=== PATIENT | female | born 1960 | race Caucasian/White ===

== ENCOUNTER 2021-04-21 05:32 | Outpatient (CLI) | payer BC ==
[~2021-04-21] VITALS: Ht 152.4 cm; Wt 63.6 kg
[2021-04-21] MEDS ORDERED: FLUT9.9S NSEACH (11:03)
[2021-04-21] MEDS ORDERED: L. A1CAP9 PO (11:03)
[2021-04-21] MEDS ORDERED: TRAM50TA3 PO (11:03)
[2021-04-21] MEDS ORDERED: [UNRECOGNIZED DRUG - REMARK] PO (11:03)
== END 2021-04-21 11:14 | disposition home or self-care (01) ==
LOC: PREOP 05:32
PROVIDERS: ATTEND Otolaryngology Otolaryngology/Facial Plastic Surgery
DX: Z01.818 Encounter for other preprocedural examination (principal)

== ENCOUNTER 2021-04-24 06:02 | Day surgery (SDC) | payer BC ==
[2021-04-24] VITALS (10 sets, daily range): BP systolic 122–159; BP diastolic 62–77
[~2021-04-24] VITALS: Ht 152.4 cm; Wt 63.6 kg
[~2021-04-24 06:02] MED LIST: FLUT9.9S NSEACH; L. A1CAP9 PO; TRAM50TA3 PO; [UNRECOGNIZED DRUG - REMARK] PO
[2021-04-24] MEDS: LACTATED RINGERS 1,000 ML IV PRN ×2 (06:24→08:21)
[2021-04-24] MEDS ORDERED: PHENYLEPHRINE 0.5% NASAL SPR (NEO-SYNEPHRINE) REG ONE (06:40)
[2021-04-24] MEDS ORDERED: LIDOCAINE/EPI 1%-1:100,000 (XYLOCAINE) 20ML ONE (06:40)
[2021-04-24] MEDS ORDERED: COCAINE HCL 4% 2 ML SYR ONE (06:40)
[2021-04-24] MEDS ORDERED: BSS 15 ML ONE (06:40)
[2021-04-24] MEDS ORDERED: MUPIROCIN 2% OINT 22 GM (BACTROBAN) TUBE ONE (06:41)
[2021-04-24] MEDS ORDERED: ONDANSETRON 4 MG/2 ML (SDV) Z0FRAN ONE (06:42)
[2021-04-24] MEDS ORDERED: MIDAZOLAM 2 MG/2 ML (VERSED) VIAL ONE (06:42)
[2021-04-24] MEDS ORDERED: ROCURONIUM 10 MG/ML 5 ML SYRINGE IV ONE (06:42)
[2021-04-24] MEDS ORDERED: proPOfol 200 MG/20 ML (DIPRIVAN) VIAL IV ONE (06:42)
[2021-04-24] MEDS ORDERED: fentaNYL INJ 100 MCG/2 ML AMP ONE (06:42)
[2021-04-24] MEDS ORDERED: SEVOFLURANE (ULTANE) 15 ML INHAL SOLN ONE (06:51)
--- NOTE | 2021-04-24 07:00 | Progress Note-Pre Operative ---
Pre-Operative Progress Note H&P Reviewed The H&P was reviewed, patient examined and no changes noted. Date Seen by Provider: Apr 24, 2021 Time Seen by Provider: 06:30 Date H&P Reviewed: Apr 24, 2021 Time H&P Reviewed: 06:30 Pre-Operative Diagnosis: Bilat Chronic Sinusities, Bialt REd of Inf Turbs KEVIN HOU MD Apr 24, 2021 07:00
[2021-04-24] MEDS ORDERED: GLYCOPYRROLATE 0.2 MG/ML (ROBINUL) 2 ML VIAL ONE (08:00)
[2021-04-24] MEDS ORDERED: NEOSTIGMINE 3 MG/3 ML VIAL ONE (08:00)
--- NOTE | 2021-04-24 08:14 | Progress Note-Post Operative ---
Post-Operative Progess Note Surgeon (s)/Disulfurizer Tender (s) Surgeon KEVIN HOU MD Disulfurizer Tender n/a Pre-Operative Diagnosis Bilat Chronic Sinusities, Bialt REd of Inf Turbs Post-Operative Diagnosis same Post-Op Procedure Note Date of Procedure: Apr 24, 2021 Name of Procedure Performed: Bilat ESS, Bialt Red of Inf Turbs Description & Findings Description and Findings: n/a Anesthesia Type get Estimated Blood Loss minimal Packing none. Specimen(s) collected/removed bialt chornic sinus disease KEVIN HOU MD Apr 24, 2021 08:14
[2021-04-24] MEDS ORDERED: HYDROcodone/APAP 5 MG/325 MG (LORTAB) TAB PO PRN (08:15)
[2021-04-24] MEDS ORDERED: D5 1/2 NS W/KCL 20 MEQ/L 1,000 ML IV SCH (08:15)
[2021-04-24] MEDS ORDERED: PROMETHAZINE INJ 25 MG/ML (PHENERGAN) AMP IVP PRN (08:15)
[2021-04-24] MEDS ORDERED: predniSONE 20 MG TAB PO ONE (08:15)
[2021-04-24] MEDS ORDERED: ACETAMINOPHEN 325 MG TABLET PO PRN (08:15)
[2021-04-24] MEDS ORDERED: HYDROmorphone 2 MG/ML VIAL (DILAUDID) ONE (08:18)
[2021-04-24] MEDS ORDERED: ONDANSETRON 4 MG/2 ML (SDV) Z0FRAN IVP PRN (08:30)
[2021-04-24] MEDS ORDERED: HYDROmorphone 2 MG/ML VIAL (DILAUDID) IV ONE (08:30)
[2021-04-24] MEDS ORDERED: TRAM50TA3 PO (09:27)
[2021-04-24] MEDS ORDERED: ACHD5005 PO (09:27)
[2021-04-24] MEDS ORDERED: AMOX500T2 PO (09:27)
[2021-04-24] MEDS ORDERED: PRD20T PO (09:27)
[2021-04-24] MEDS ORDERED: HYDROcodone/APAP 5 MG/325 MG (LORTAB) TAB ONE (09:32)
[2021-04-24] MEDS ORDERED: predniSONE 20 MG TAB ONE (09:36)
--- NOTE | 2021-04-24 10:17 | Anesthesia-General Post-Op ---
General Patient Condition Mental Status/LOC: Same as Preop Cardiovascular: Satisfactory Nausea/Vomiting: Absent Respiratory: Satisfactory Pain: Controlled Complications: Absent Post Op Complications Complications None Follow Up Care/Instructions Patient Instructions None needed. Anesthesia/Patient Condition Patient Condition Patient is doing well, no complaints, stable vital signs, no apparent adverse anesthesia problems. No complications reported per nursing. D[place] per [facility] [place]: Yes NAVID CONTE CRNA Apr 24, 2021 10:17
== END 2021-04-24 10:20 | disposition home or self-care (01) ==
LOC: SDC 06:02
PROVIDERS: ATTEND Otolaryngology Otolaryngology/Facial Plastic Surgery
DX: J34.3 Hypertrophy of nasal turbinates (principal); R09.81 Nasal congestion; J32.9 Chronic sinusitis, unspecified; F17.210 Nicotine dependence, cigarettes, uncomplicated; K21.9 Gastro-esophageal reflux disease without esophagitis; Z79.899 Other long term (current) drug therapy; Z79.890 Hormone replacement therapy
CPT/HCPCS: 87081; 88305; 88311